=== PATIENT | female | born 1955 | race Caucasian/White ===

== ENCOUNTER → 2018-07-19 08:28 | Outpatient (CLI) | payer OTHER, SELFPAY ==
--- NOTE | 2018-07-19 08:32 | FL_ITS ---
EXAM: Barium swallow/esophagram. INDICATION: ITS.REASON: difficulty swallowing, patient with Parkinson's disease ORDERING PHYSICIAN: Randee Arango PATIENT AGE: 62 years COMPARISON: None TECHNIQUE: In the upright position the patient was observed to swallow barium in both the AP and lateral view. The cervical esophagus was examined under fluoroscopy with images obtained. The patient was then placed prone in the right anterior oblique position and was observed to swallow barium with Valsalva technique . FLUOROSCOPY TIME: 61 seconds FINDINGS: There was no evidence of aspiration. There was normal peristalsis. No filling defects or mucosal abnormalities. No masses or strictures. IMPRESSION: Negative barium swallow.
== END ==
PROVIDERS: Family Provider Family Medicine; PCP Family Medicine; Visit Provider Nurse Practitioner Family
DX: R13.10 Dysphagia, unspecified (principal); G20 Parkinson's disease
CPT/HCPCS: 74220

== ENCOUNTER → 2018-08-20 12:55 | Outpatient (CLI) | payer BC, SELFPAY | PROVIDERS: Visit Provider Nurse Practitioner Family | DX: G20 Parkinson's disease (principal); G47.34 Idiopathic sleep related nonobstructive alveolar hypoventilation | CPT/HCPCS: 95806 ==

== ENCOUNTER → 2018-09-09 13:10 | Outpatient (POV) | payer BC, SELFPAY | PROVIDERS: Family Provider Family Medicine; Visit Provider Specialist | DX: R20.0 Anesthesia of skin (principal); M79.672 Pain in left foot; Z79.899 Other long term (current) drug therapy | CPT/HCPCS: 95886; 95908 ==

== ENCOUNTER 2019-01-28 14:30 | Outpatient (RCR) | payer BC, MEDICARE, SELFPAY ==
--- NOTE | 2018-11-20 18:10 | HMH.PTOPEV ---
PT Outpatient Evaluation Rehab PT Outpatient Evaluation Start: 11/20/18 14:48 Freq: Status: Active Protocol: Document 11/20/18 14:48 DEVORAHJEFFERSON (Rec: 11/20/18 17:07 ROSALINDA [id number]) Electronically Signed By Ramakrishna Chance PT 11/20/18 14:48 Outpatient Therapy Subjective History Subjective History This is the initial Physical Therapy evaluation for Jodee Rollins. Pt reports to PT w/ c /o decreased energy and poor balance. Pt reports she was diagnosed w/ early onset parkinson's ~ 2 years ago. Pt also reprots she has gained ~ 40 lbs in that time. Pt also has c/o paresthesia in L lateral 3 toes. Pt reports the severity of paresthesia varies. Pt rpeorts she wishes to improve balance, endurance and improve general fitness. Chief Complaint Paresthesia Weakness Other Symptom Type Numbness Tingling Symptoms Relieved By Nothing Symptoms Aggravated By Walking Prior Functional Limitations None Current Functional Limitations Housework Recreation Activity Walking Balance HOLLY Balance Evaluation Sitting to Standing Ability Independent w/Hands Unsupported Stance Safely- 2 minutes Sitting Unsupported, Feet on Floor Safely- 2 minutes Standing to Sitting Ability Safely, Minimal Hand Use Transfer Ability Safely, Minimal Hand Use Unsupported Stance- Eyes Closed Safely, 10 seconds Unsupported Stance- Eyes Open Independent, 1 minute Reaching Forward Standing Safely, 5 inches Pick- Up Object From Floor Requires Supervision Look Behind Shoulder - Standing Shifts Weight Well Turning 360 Degrees Turns slowly, but safely Unsupported Stance, Alternating Feet on (I)- 8 Steps in > 20 secs Stair Unsupported Tandem Stance Holds Tandem- 30 seconds Unilateral Leg Stance Lifts Leg/Holds 10 secs Total Score Balance Evaluation Total (out of 56 47 points) Tinetti Sitting Balance Sitting Balance Steady, safe Arising from Chair Ability to Arise Able, uses arms to help Attempts to Arise Arises on 1st attempt Standing Balance Immediate Standing Balance Steady w/o support Standing Balance
== END 2019-01-28 14:35 | disposition home or self-care (01) ==
LOC: PT 14:30
PROVIDERS: Visit Provider Specialist
DX: G20 Parkinson's disease (principal)
CPT/HCPCS: 97110; 97112; 97163; 97164

== ENCOUNTER → 2019-05-12 12:21 | Outpatient (CLI) | payer BC, SELFPAY ==
[2019-05-12 12:22] LABS: Microscopic, Urine URINE MICROSCOPIC (MICROSCOPIC)
[2019-05-12 12:36] LABS: Appearance,Urine CLEAR (Clear); Bilirubin,Urine Negative (Negative); Blood, Urine Negative (Negative); Color,Urine YELLOW (Yellow); Glucose,Urine (UA) Negative (Negative); Ketones,Urine Negative (Negative); Leukocyte Esterase,Urine TRACE (Negative); Nitrate,Urine Negative (Negative); Protein,Urine Negative (Negative); Urobilinogen,Urine 0.2 EU/dl (0.2)
[2019-05-12 12:47] LABS: Bacteria,Urine 1+ /lpf; Squamous Epithelial Cell,Urine Occasional #/hpf (0-5)
== END ==
PROVIDERS: Visit Provider Specialist
DX: R39.15 Urgency of urination (principal)
CPT/HCPCS: 81001; 87086

== ENCOUNTER → 2019-05-19 17:16 | Outpatient (CLI) | payer BC, SELFPAY | PROVIDERS: Visit Provider Specialist | DX: R39.15 Urgency of urination (principal) | CPT/HCPCS: 87086 ==

== ENCOUNTER → 2019-07-22 07:54 | Outpatient (CLI) | payer SELFPAY ==
--- NOTE | 2019-07-22 08:01 | CT_ITS ---
PROCEDURE: CT HEART W CALCIUM SCORE CLINICAL HISTORY: SCREENING COMPARISON: No exams were available for comparison TECHNIQUE: Axial images obtained with sagittal and coronal reformats. All CT scans at the facility use one or more dose reduction, viz: automated exposure control, ma/kV adjustment per patient size (including targeted exams where dose is matched to indication, i.e. head), or iterative reconstruction technique. FINDINGS: The coronary artery calcium score is 360 indicating moderate plaque burden with high cardiovascular disease risk. There is a 5 mm noncalcified nodule within the lingula IMPRESSION: Moderate plaque burden with high cardiovascular disease risk Dictated by: Vicente Campbell MD 07/22/2019 18:53 Signed by: <Electronically signed by Vicente Campbell MD in [place]> 07/22/2019 18:53
== END ==
PROVIDERS: PCP Family Medicine; Visit Provider Internal Medicine Cardiovascular Disease
DX: Z13.6 Encounter for screening for cardiovascular disorders (principal)
CPT/HCPCS: 75571

== ENCOUNTER 2022-10-18 14:00 | Outpatient (RCR) | payer BC, MEDICARE, SELFPAY ==
--- NOTE | 2022-09-21 16:08 | HMH.PTOPEV ---
PT Outpatient Evaluation Rehab PT Outpatient Evaluation Start: 09/21/22 14:04 Freq: Status: Active Protocol: Document 09/21/22 15:16 ALIA (Rec: 09/21/22 16:04 ALIA [id number]) E-signed By Shankar Hayes, PT Outpatient Therapy Subjective History Subjective History This is the initial PT evaluation for Jodee Rollins who presents with decreased ambulation ability and balance due to diagnosis of Parkinson 's disease ~ 5 yrs ago. She reports several minor falls and one major fall within the past 6 mos. She reports the major fall involved falling down stairs and she hit her head with unknown loss of consciousness, luckily she suffered no major injuries. She reports hx of pain management treatment due to low back and R LE pain as well . She reports difficulty with transfers due to rigidity, especially sit/stand, and shuffling steps. She also reports intermittently having hallucinations, but she has reported these to her MD. She states, I have good days and bad days. Chief Complaint Other,Decreased Coordination Symptom Type Ache Symptoms Relieved By Rest/Positioning Symptoms Aggravated By Physical Activity,Walking Prior Functional Limitations Walking Current Functional Limitations Housework,Recreation Activity, Walking,Stairs,Balance Symptom Description Intermittent,Activity Dependent Level of pain today (0-10) 0 Pain scale - at its worst (0-10) 9 Balance Eval Hx of Falls Hx Falls Yes Number in last 6 months 3 Gait/Posture Asssessment General Gait Observation Shuffling Step,Decrease Stride Lngth (R),Decrease Stride Lngth (L) Assistive Devices Straight Cane Level of Transfer Assist Independent Body Alignment Posture Rigid Dynamic Gait Index Test Protocol Gait Level Surface Mild Impairment Query Text: Instructions: Walk at your normal speed from here to the next stella (20
== END 2022-10-18 14:05 | disposition home or self-care (01) ==
LOC: PT 14:00
PROVIDERS: Visit Provider Specialist
DX: G20 Parkinson's disease (principal); R26.89 Other abnormalities of gait and mobility
CPT/HCPCS: 97110; 97112; 97116; 97163